=== PATIENT | male | born 1995 | race Two or more races ===

== ENCOUNTER → 2016-09-20 | Outpatient (REF) | payer OTHER | LOC: M SFHCLERA 15:05 | PROVIDERS: ATTEND Nurse Practitioner Family | DX: L60.0 Ingrowing nail (principal) ==

== ENCOUNTER → 2017-04-22 | Outpatient (REF) | payer OTHER ==
[2017-04-22 17:25] LABS: INFLUENZA A AMPLIFICATION POSITIVE (NEGATIVE); INFLUENZA B AMPLIFICATION NEGATIVE (NEGATIVE)
== END ==
LOC: M SFHCLERA 13:26
DX: R68.89 Other general symptoms and signs (principal); J02.9 Acute pharyngitis, unspecified